=== PATIENT | female | born 1985 | race American Indian/Alaskan Native ===

== ENCOUNTER 2017-07-08 10:32 | Emergency (ER) | payer SELFPAY ==
--- NOTE | 2017-07-08 12:00 | Emergency Department Report ---
Chief Complaint: Abdominal Pain Stated Complaint: ABD PAIN/CRAMPS Time Seen by Provider: 07/08/17 11:59 - HPI History of Present Illness: Patient reported that she is having abdominal pain and cramping in on and off. She did not have any today. She said is 310 to her left lower quadrant. Denies any urinary burning frequency or urgency. She reports that she is having an diarrhea at times. Denies any blood in her stool. Denies any fever or chills. She also says she is having clear vaginal discharge she's not concerned for STD. Denies any vaginal bleeding. She says she is burping more than usual. Last menstrual period was 06/23/2017. - ROS Review of Systems: All systems are negative unless stated in HPI above - Exam Vital Signs: Vital Signs 07/08/17 11:37 Temperature 98.7 F Other vital signs as recorded on triage report his pulse is 79, respiration 18, blood pressure is 137/93. Pain is 0-10 and her pulse ox is 100% on room air Physical Exam: This is a 32-year-old female well-nourished well-developed in no acute distress. Abdomen: Nontender to palpate in all quadrant, no guarding or rebound tenderness. No peritoneal signs and normal bowel sounds in all quadrants. MSE screening note: Focused history and physical exam performed. Due to findings the following was ordered:MDM ED Medical Decision Making - Medical Decision Making MDM: Patient screened by provider in triage area. Appropriate protocol initiated and patient to be seen in main ED by Dr. GUTIERREZ Disposition for MSE Condition: Stable Instructions: Abdominal Pain (ED)
[2017-07-08 12:33] LABS: Bacteria,Urine 1+ /HPF (Negative); Bilirubin,Urine NEG (Negative); Blood,Urine NEG (Negative); Ketones,Urine NEG (Negative); Leukocyte Esterase,Urine NEG (Negative); Mucus,Urine 1+ /HPF; Nitrite,Urine NEG (Negative); Protein,Urine <15 mg/dL mg/dL (Negative); Urobilinogen,Urine < 2.0 mg/dL (<2.0)
[2017-07-08 12:47] LABS: Basophils % (Auto) 0.5 % (0.0-1.8); Eosinophils % (Auto) 2.6 % (0.0-4.3); Hematocrit 34.7 % (30.3-42.9); Hemoglobin 11.2 gm/dl (10.1-14.3); Mean Corpuscular HGB Conc 32 % (30-34); Mean Corpuscular Hemoglobin 27 pg (28-32); Mean Corpuscular Volume 84 fl (79-97); Platelet Count 191 K/mm3 (140-440); Red Blood Count 4.15 M/mm3 (3.65-5.03); Red Cell Distribution Width 15.5 % (13.2-15.2); White Blood Count 9.5 K/mm3 (4.5-11.0)
[2017-07-08 12:59] LABS: Alanine Aminotransferase 12 units/L (7-56); Albumin 4.1 g/dL (3.9-5); Albumin/Globulin Ratio 1.1 %; Alkaline Phosphatase 47 units/L (35-129); Anion Gap 14 mmol/L; BUN/Creatinine Ratio 20; Blood Urea Nitrogen 10 mg/dL (7-17); Calcium 9.2 mg/dL (8.4-10.2); Carbon Dioxide 25 mmol/L (22-30); Chloride 104.6 mmol/L (98-107); Glucose 69 mg/dL (65-100); Lipase 39 units/L (13-60); Sodium 140 mmol/L (137-145); Total Protein 7.9 g/dL (6.3-8.2)
== END 2017-07-09 01:18 | disposition left against medical advice (07) ==
LOC: ED 10:32
DX: R10.9 Unspecified abdominal pain (principal); Z53.21 Procedure and treatment not carried out due to patient leaving prior to being seen by health care provider
CPT/HCPCS: 36415; 80053; 81001; 81025; 83690; 85025